=== PATIENT | male | born 1980 | race Hispanic/Latino ===

== ENCOUNTER 2018-11-12 21:23 | Emergency (ER) | payer SELFPAY ==
[2018-11-12 21:26] VITALS: PULSE 67; RESP 13; TEMP 36.8; O2SAT 100; BMI 23.6
--- NOTE | 2018-11-12 21:49 | PC.NURSE ---
pt reports no chest pain. fluttery palpitations feeling up into throat. reports feeling this feeling on and off for a couple weeks. denies sob, diaphorisis, loc, n\v\d, edema in extremities.
--- NOTE | 2018-11-12 21:49 | ED.ARRPALP ---
HPI - Arrhythmia/Palpitations General Chief Complaint: Arrhythmia/Palpitations Stated Complaint: Chest pain Time Seen by Provider: 11/12/18 21:49 Source: patient Mode of arrival: ambulatory Limitations: no limitations History of Present Illness HPI narrative: Patient is a otherwise healthy 38-year-old male here for evaluation of palpitations. He was sent over from [facility] for evaluation. Patient states that for the past 3 days he has had several times an hour very brief episodes of feeling like his heart is beating fast. He denies any other associated symptoms to include chest pain or lightheadedness or passing out. Prior to 3 days ago stated that he has never had anything like this in the past. He did have a brother who had some sort of cardiac event in his early 30s but the patient does not know what it was. He does not know of any family history of drowning sore sudden cardiac . Patient denies tobacco use. Denies any supplement use. States he does occasionally drink alcohol. Related Data Allergies Allergy/AdvReac Type Severity Reaction Status Date / Time No Known Drug Allergies Allergy Verified 11/12/18 21:40 Review of Systems Constitutional Denies fever(s) Cardiovascular Denies chest pain, Denies chest pain with activity, Denies diaphoresis, Reports rapid heart rate, Denies leg edema, Denies lightheadedness, Reports palpitations, Denies dyspnea and Denies dyspnea on exertion Respiratory Denies cough, Denies dyspnea and Denies dyspnea on exertion Gastrointestinal Gastrointestinal: Denies abdominal pain, Denies nausea and Denies vomiting Genitourinary Denies dysuria Musculoskeletal Denies myalgias and Denies arthralgias Integumentary/Breasts Denies rash Neurologic Denies behavioral changes Psychiatric Denies behavioral changes Endocrine Reports palpitations Hematologic/Lymphatic Denies easy bleeding and Denies easy bruising [facility] Medical History Healthy adult (Acute) Social History Smoking Status: Never smoker Social History Smoking Status: Never smoker Exam Initial Vital Signs Initial Vital Signs: Vital Signs Temperature 98.2 F 11/12/18 21:26 Pulse Rate 67 11/12/18 21:26 Respiratory Rate 13 11/12/18 21:26 Pulse Oximetry 100 11/12/18 21:26 Const General: cooperative, comfortable, well developed, well groomed and No acute distress Orientation: alert, awake and oriented x3 HENMT Head: normal to inspection and normocephalic Resp Effort & Inspection: normal respiratory effort Auscultation: clear to auscultation bilaterally Cardio Rate: regular rate Rhythm: regular rhythm Pulses: radial pulses present Skin Lesions: no lesions Rashes: no rashes Neuro General: alert, awake and oriented x3 Cognition: normal cognition Speech: speech normal Extrem General: normal to inspection and No edema Psych Appearance: grossly normal and well kempt Course Orders Ordered: ED Orders 11/12/18 21:40 Basic Metabolic Panel Stat Complete Blood Count AUTO DIFF Stat Troponin I Stat Vital Signs - 8 hr 11/12/18 21:26 11/12/18 22:53 11/12/18 23:20 Temperature 98.2 F Pulse Rate 67 99 H 70 Respiratory Rate 13 18 19 Blood Pressure Blood Pressure [Left Arm] 119/68 116/70 Pulse Oximetry 100 99 100 11/13/18 00:16 Temperature Pulse Rate 53 L Respiratory Rate 20 Blood Pressure 117/69 Blood Pressure [Left Arm] Pulse Oximetry 99 MDM - Arrhythmia/Palpitations Lab Data Attestation: I reviewed the patient's lab results. Result diagrams: 11/12/18 21:40 11/12/18 21:40 Lab Results 11/12/18 11/12/18 Range/Units 21:40 21:40 WBC 7.0 (4.5-11.0) X10^3/uL RBC 5.30 (4.5-5.9) X10^6/uL Hgb 15.5 (13.5-17.5) g/dL Hct 45.7 (41-53) % MCV 86.2 (80-100) fL MCH 29.2 (26-34) PG MCHC 33.9 (30-36) % RDW 13.9 (11.6-14.8) % Plt Count 274 (150-400) X10^3/uL Neut % (Auto) 44.9 L (50-75) % Lymph % (Auto) 38.5 (25-40) % [place] % (Auto) 12.8 (3-14) % Eos % (Auto) 3.3 (2-4) % Baso % (Auto) 0.5 (0-2) % Neut # (Auto) 3100 (4458-7127) /uL Lymph # (Auto) 2700 (2995-3549) /uL [place] # (Auto) 900 (0-900) /uL Eos # (Auto) 200 (0-450) /uL Baso # (Auto) 0 (0-100) /uL Sodium 139 (137-145) mmol/L Potassium 4.0 (3.4-5.1) mmol/L Chloride 105 (98-107) mmol/L Carbon Dioxide 25 (22-32) mmol/L BUN 21 H (9-20) mg/dL Creatinine 0.90 (0.66-1.25) mg/dL Estimated GFR > 60.0 (>60) mL/min BUN/Creatinine Ratio 23.3 H (6-22) Glucose 98 (70-100) mg/dL Calcium 8.8 (8.4-10.2) mg/dL Troponin I < 0.012 (0.01-0.034) ng/mL ECG Data Attestation: I personally reviewed and interpreted this ECG as follows: Prior ECG tracings: available for review Interpretation: Sinus bradycardia Ventricular rate of 53 Normal axis Normal QRS Normal QTC Comparison [facility]ed [facility] Similar to the EKG obtained here in the emergency department MDM Narrative Medical decision making narrative: Patient had no symptoms while here on the monitor. His EKG is unremarkable. No signs of WPW or prolonged QT. His labs unremarkable. Doubt ACS. Informed the patient that he does need to talk with the primary provider about obtaining a Holter monitor for further evaluation. He was given strict return precautions. He expressed understanding agreed with plan. His is at bedside for these discussions. Discharge Plan Departure Patient Disposition: Home Clinical Impression: Palpitations Discharge Date/Time: 11/13/18 00:00 Interventions: ED Discharge Assessment Last Done: 11/13/18 00:16 Instructions: DI for Palpitations Activity Restrictions/Additional Instructions: You can contact 360 talk with the health human resources benefits assistant here at the hospital to help you establish a primary provider. I do recommend that you talk with a primary provider about obtaining a Holter monitor. Return to the emergency department if you have any of your symptoms associated with chest pain or shortness of breath or passing out or lightheadedness.
[2018-11-12 22:14] LABS: Add Manual Diff / Slide Review NO; BUN Creatinine Ratio 23.3 (6-22); Basophils Absolute Auto 0 /uL (0-100); Basophils Percent Auto 0.5 % (0-2); Blood Urea Nitrogen 21 mg/dL (9-20); Calcium 8.8 mg/dL (8.4-10.2); Carbon Dioxide 25 mmol/L (22-32); Chloride 105 mmol/L (98-107); Eosinophils Absolute Auto 200 /uL (0-450); Eosinophils Percent Auto 3.3 % (2-4); Estimated Glomerular Filt Rate > 60.0 mL/min (>60); Glucose 98 mg/dL (70-100); HEMOLYSIS 19 (0-50); Hematocrit 45.7 % (41-53); Hemoglobin 15.5 g/dL (13.5-17.5); Lymphocytes Absolute Auto 2700 /uL (1100-4500); Lymphocytes Percent Auto 38.5 % (25-40); Mean Corpuscular HGB Conc 33.9 % (30-36); Mean Corpuscular Hemoglobin 29.2 PG (26-34); Mean Corpuscular Volume 86.2 fL (80-100); Monocytes Absolute Auto 900 /uL (0-900); Monocytes Percent Auto 12.8 % (3-14); Neutrophils Absolute Auto 3100 /uL (1500-7000); Neutrophils Percent Auto 44.9 % (50-75); Platelet Count 274 X10^3/uL (150-400); Red Cell Distribution Width 13.9 % (11.6-14.8); Sodium 139 mmol/L (137-145)
[2018-11-12 22:26] LABS: Troponin I < 0.012 ng/mL (0.01-0.034)
[2018-11-12 22:53] VITALS: BP 119/68; PULSE 99; RESP 18; O2SAT 99
[2018-11-12 23:20] VITALS: BP 116/70; PULSE 70; RESP 19; O2SAT 100
[2018-11-13 00:16] VITALS: BP 117/69; PULSE 53; RESP 20; O2SAT 99
== END 2018-11-13 | disposition home or self-care (01) ==
PROVIDERS: Emergency Provider Emergency Medicine
DX: R00.2 Palpitations (principal)
CPT/HCPCS: 36591; 80048; 84484; 85025; 93005; 93010; 99282; 99284